=== PATIENT | female | born 1990 | race Two or more races ===

== ENCOUNTER 2018-11-29 11:10 | Observation (INO) | payer SELFPAY ==
[~2018-11-29] VITALS: Ht 152.4 cm; Wt 51.7 kg
[2018-11-29] MEDS ORDERED: PREN-96 PO (12:25)
[2018-11-29] MEDS: TERBUTALINE SULFATE 1 MG/ML 1ML VIAL SC SCH ×3 (13:41→14:38)
== END 2018-11-29 15:50 | disposition home or self-care (01) | DRG 833 ==
LOC: LDRP 11:10
PROVIDERS: ADMIT Specialist; ATTEND Specialist
DX: O26.893 Other specified pregnancy related conditions, third trimester (principal); Z3A.28 28 weeks gestation of pregnancy; Z88.0 Allergy status to penicillin
CPT/HCPCS: 59025; 76818; 81002; 96372; G0378; J3105

== ENCOUNTER 2018-12-06 10:14 | Observation (INO) | payer OTHER ==
[~2018-12-06 10:14] MED LIST: PREN-96 PO
== END 2018-12-06 12:35 | disposition home or self-care (01) | DRG 833 ==
LOC: LDRP 10:14
PROVIDERS: ADMIT Specialist; ATTEND Specialist
DX: O36.8930 Maternal care for other specified fetal problems, third trimester, not applicable or unspecified (principal); Z3A.29 29 weeks gestation of pregnancy; Z88.0 Allergy status to penicillin
CPT/HCPCS: 59025; 76818; 81002; G0378

== ENCOUNTER 2020-09-16 21:30 | Emergency (ER) | payer BC, OTHER ==
[~2020-09-16] VITALS: Ht 149.9 cm; Wt 43.1 kg
[2020-09-16 21:43] VITALS: BP 101/57
== END 2020-09-17 01:26 | disposition home or self-care (01) ==
LOC: ER 21:37
DX: H00.011 Hordeolum externum right upper eyelid (principal); Z88.0 Allergy status to penicillin; Z79.899 Other long term (current) drug therapy